=== PATIENT | male | born 1945 | race Caucasian/White ===

== ENCOUNTER 2021-05-02 20:32 | Emergency (ER) | payer MEDICARE ==
[~2021-05-02] VITALS: Ht 172.7 cm; Wt 134.5 kg
[2021-05-02] MEDS ORDERED: BACITRACIN ZINC TOPICAL OINT PACKET. TP ONE (20:54)
[2021-05-02] MEDS ORDERED: NEOMY/BACITR/POLYMYXIN OINT PACKET. TP ONE (21:00)
--- NOTE | 2021-05-02 21:04 | PHYS DOC ---
Past History Additional Past Surgical Histo: Left elbow surgery Smoking: Non-smoker Alcohol Use: Occasionally Drug Use: None General Adult EDM: Chief Complaint: SHOULDER INJURY HPI: HPI: Patient is a 75 year old male who presents with left shoulder pain S/P fall. Reports he was hanging up curtains in his bedroom when he fell approximately 2 feet off of a step-ladder onto the shoulder. Rates pain as 10/10 currently. States the pain radiates into the proximal arm. Also reports numbness in the 3-5 fingers of the left hand. No previous injury to the shoulder. He is not on any blood thinners. Denies any head injury, LOC, or neck pain. Review of Systems: Review of Systems: Constitutional: Denies fever or chills Eyes: Denies redness or eye pain HENT: Denies nasal congestion or sore throat Respiratory: Denies cough or shortness of breath Cardiovascular: Denies chest pain or palpitations GI: Denies abdominal pain, nausea, or vomiting : Denies dysuria or hematuria Musculoskeletal: Reports left shoulder pain. Denies back pain. Integument: Denies rash or skin lesions Neurologic: Reports left 3-5 finger numbness. Denies headache or focal weakness. Complete systems were reviewed and found to be within normal limits, except as documented in this note. Allergies: Allergies: Allergies Coded Allergies Type Severity Reaction Last Updated Verified No Known Drug Allergies 05/02/21 No Physical Exam: PE: Constitutional: Well developed, well nourished, no acute distress, non-toxic appearance HENT: Normocephalic, atraumatic Eyes: Conjunctiva normal, no discharge Neck: Normal range of motion, no tenderness, supple Lungs & Thorax: No respiratory distress, equal chest rise and fall Abdomen: Soft, no tenderness Skin: Warm, dry, no erythema, no rash Back: No tenderness, no CVA tenderness Extremities: Active and passive ROM of the left shoulder limited secondary to pain. Diminished sensation over the left 3-5 fingers. Shoulder and remainder of extremity nontender to palpation. 2+ radial pulses bilaterally. Composite Bond Worker strength intact bilaterally. Neurologic: Alert and oriented X 3, normal motor function, no focal deficits noted Psychologic: Affect normal, judgment normal Current Patient Data: Vital Signs: Vital Signs Date Time Temp Pulse Resp B/P (MAP) Pulse Ox O2 Delivery O2 Flow Rate FiO2 05/02/21 20:35 97.7 71 24 167/100 97 Room Air Radiology/Procedures: Radiology/Procedures: PROCEDURE: SHOULDER 2+V LEFT Three-view left shoulder dated 05/02/2021. No comparison available. Clinical data indication: Pain after fall. FINDINGS: 3 views left shoulder show comminuted mildly displaced fracture through the surgical neck of the left humerus. Possible subtle fracture lines extending to the greater trochanter. Glenohumeral alignment is otherwise anatomic. Mild degenerative change of the glenohumeral joint and AC joint. IMPRESSION: Proximal left humerus fracture as described. Electronically signed by: Vaughn Springer MD (05/02/2021 9:08 PM) [facility] Heart Score: C/O Chest Pain: N/A Course & Med Decision Making: Course & Med Decision Making 75 year old male presents with shoulder pain s/p fall. Imaging significant for humeral head fracture of the left shoulder. Shoulder immobilized and placed in sling. Administered 50mcg of fentanyl for additional pain management. Patient stable for discharge with outpatient follow-up with orthopedics. Discussed findings and plan with patient, who acknowledges understanding and agreement. Lauri Disclaimer: Lauri Disclaimer: This electronic medical record was generated, in whole or in part, using a voice recognition dictation system. Departure Departure: Impression: Primary Impression: Proximal humeral fracture Qualified Codes: S42.292A - Other displaced fracture of upper end of left humerus, initial encounter for closed fracture Additional Impressions: Elbow abrasion Qualified Codes: S50.312A - Abrasion of left elbow, initial encounter Fall Qualified Codes: W19.XXXA - Unspecified fall, initial encounter Disposition: HOME / SELF CARE / HOMELESS Condition: STABLE Referrals: PCP,LISA (PCP) DENISE JUAREZ MD Patient Instructions: Abrasion, [id number], Fall Prevention and Home Safety, [id number], Humerus Fracture, Treated with Immobilization, [id number], Shoulder Immobilizer Additional Instructions: Follow closely with orthopedics. Take over the counter Motrin in addition to prescribed pain medication. ICE area of discomfort 20 min on then leave off next 20 mins. Repeat several times daily as needed for pain. Scripts Tramadol Hcl (TRAMADOL HCL) 50 Mg Tablet 50 MG PO PRN Q6HRS PRN for PAIN, #16 TAB Prov: VAUGHN SOUTH DO 05/02/21 VAUGHN SOUTH DO May 02, 2021 21:04
--- NOTE | 2021-05-02 21:10 | RAD ---
Three-view left shoulder dated 05/02/2021. No comparison available. Clinical data indication: Pain after fall. FINDINGS: 3 views left shoulder show comminuted mildly displaced fracture through the surgical neck of the left humerus. Possible subtle fracture lines extending to the greater trochanter. Glenohumeral alignment is otherwise anatomic. Mild degenerative change of the glenohumeral joint and AC joint. IMPRESSION: Proximal left humerus fracture as described. Electronically signed by: Vaughn Springer MD (05/02/2021 9:08 PM) D[facility]OT[facility]
[2021-05-02 21:19] VITALS: BP 142/8
[2021-05-02] MEDS ORDERED: TRAM50TA PO (21:20)
[2021-05-02] MEDS ORDERED: KETOROLAC 15 MG/ML VIAL. IVP ONE (21:30)
[2021-05-02] MEDS ORDERED: traMADol 50 MG TABLET PO ONE (21:30)
== END 2021-05-02 21:57 | disposition home or self-care (01) ==
LOC: ER 20:32
DX: S42.292A Other displaced fracture of upper end of left humerus, initial encounter for closed fracture (principal); S50.312A Abrasion of left elbow, initial encounter; W11.XXXA Fall on and from ladder, initial encounter; Y93.89 Activity, other specified; Y92.89 Other specified places as the place of occurrence of the external cause; Y99.8 Other external cause status
CPT/HCPCS: 29125; 73030; 96374; 96375; 96376; 99284; J1885; J3010

== ENCOUNTER 2021-06-04 20:17 | Emergency (ER) | payer MEDICARE ==
[~2021-06-04] VITALS: Ht 172.7 cm; Wt 134.5 kg
[~2021-06-04 20:17] MED LIST: TRAM50TA PO
--- NOTE | 2021-06-04 21:45 | PHYS DOC ---
Past History Past Medical History: Hypertension (SAMAN NORTH MD) Additional Past Surgical Histo: Left elbow surgery (SAMAN NORTH MD) Smoking: Non-smoker Alcohol Use: Occasionally Drug Use: None (SAMAN NORTH MD) General Adult EDM: Chief Complaint: HIP PAIN HPI: HPI: Patient is a 75-year-old male coming in for right hip pain started just over 24 hours prior to arrival. Patient states he was sitting watching a game on television when the pain started. Pain should not he initially desat ROM but pain was worse when he got to the bathroom. Is having difficulty ambulating now. Denies any systemic complaints or recent injury. 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 Has not had any complications with joint since. Says he was pain-free prior to the onset. Denies any blood thinner use. Patient had multiple dental extractions 6 days ago, he also had a ORIF of his left proximal humerus 3 weeks ago. Is vaccinated his Covid (SAMAN NORTH MD) Review of Systems: Review of Systems: All other systems within normal limits except for as noted in the HPI (SAMAN NORTH MD) Allergies: Allergies: Allergies Coded Allergies Type Severity Reaction Last Updated Verified No Known Drug Allergies 05/02/21 No (SAMAN NORTH MD) Physical Exam: PE: Constitutional: Well developed, well nourished, no acute distress, non-toxic appearance. [] HENT: Normocephalic, atraumatic, bilateral external ears normal, nose normal. [] Eyes: PERRLA, conjunctiva normal, no discharge. [] Neck: No rigidity, supple, no stridor. [] Cardiovascular: Regular rate and rhythm, brisk cap refill [] Lungs & Thorax: Non labored symmetric respirations, no tachypnea or respiratory distress [] Abdomen: Soft, nondistended. Skin: Warm, dry, no erythema, no rash. [] Back: Unremarkable Extremities: No deformities, range of motion grossly intact, no lower extremity edema. Right hip tender to palpation, pain with passive leg roll. Exam limited by patient discomfort. [] Neurologic: Alert and oriented X 3, no focal deficits noted. [] Psychologic: Affect normal, judgement normal, mood normal. [] (SAMAN NORTH MD) PE: Constitutional: Well developed, well nourished, uncomfortable, non-toxic appearance HENT: Normocephalic, atraumatic Eyes: Conjunctiva normal, no discharge Neck: Normal range of motion, supple Lungs & Thorax: No respiratory distress, equal chest rise and fall Abdomen: Soft, no tenderness Skin: Warm, dry, no erythema, no rash Extremities: Right groin and lateral hip tenderness on palpation, ROM limited to right hip due to pain, no edema, right DP and PT +2 Neurologic: Alert and oriented X 3, no focal deficits noted Psychologic: Affect normal, judgment normal (WILLIAM SOUTH DO) EKG: EKG: [] (SAMAN NORTH MD) Radiology/Procedures: Radiology/Procedures: [place] [address] IMAGING REPORT Signed PATIENT: JACE CHAO ACCOUNT: [id number] : 1945 LOCATION: ER AGE: 75 SEX: M EXAM STATUS: REG ER ORD. PHYSICIAN: SAMAN NORTH MD REASON: non traumatic hip pain, concern for septic arthritis PROCEDURE: HIP RIGHT 2V WITH PELVIS Exam: Pelvis with right hip 2 views INDICATION: Nontraumatic hip pain TECHNIQUE: Frontal view of the pelvis with frontal and frog-leg lateral views of the right hip Comparisons: None FINDINGS: Bilateral hip arthroplasties are noted. No acute or healed fractures. Soft tissues are unremarkable. Bone mineralization is normal. 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 Electronically signed by: Mitzi Ortiz MD (06/04/2021 10:52 PM) [facility] DICTATED AND SIGNED BY: MITZI ORTIZ MD DATE: 06/04/21 5340 CC: SAMAN NORTH MD; JAX BOCANEGRA DO ~MTH0 0 [] (SAMAN NORTH MD) Heart Score: C/O Chest Pain: No Risk Factors: Risk Factors: DM, Current or recent (<one month) smoker, HTN, HLP, family history of CAD, obesity. Risk Scores: Score 0 - 3: 2.5% MACE over next 6 weeks - Discharge Home Score 4 - 6: 20.3% MACE over next 6 weeks - Admit for Clinical Observation Score 7 - 10: 72.7% MACE over next 6 weeks - Early Invasive Strategies (SAMAN NORTH MD) Course & Med Decision Making: Course & Med Decision Making Pertinent Labs and Imaging studies reviewed. (See chart for details) Patient with white count of 18,000 and CRP of 130, no other pain or source of infection. 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 Discussed the case with Dr. Biggs who will see the patient at [facility] and would like him to go to IR for fluoroscopic arthrocentesis. Since patient is not septic at this time he would like to hold off antibiotics and a contaminated sample. With the plan that we will start antibiotics if patient's status changes. Patient and agree to plan and will wait for a bed at [facility] in the morning to go straight to IR. Patient given IV fluids and placed on n.p.o. status. Consulted Dr. Chappell, hospitalist, who will accept patient at [facility]. Patient stable emergency department overnight, pending transport shift change. [] (SAMAN NORTH MD) Course & Med Decision Making [id number]-signout received from Dr. North for patient with right hip pain status post right hip arthroplasty. There was concern for possible septic arthritis. Patient previously admitted to [facility] but awaiting bed assignment. Patient to be seen by interventional radiology. Reportedly antibiotics are to be held until patient has been seen by interventional radiology for sampling of fluid. Patient seen and evaluated by myself. Pain continued to be addressed. Plan to continue with transfer to [facility] for admission under Dr. Chappell (hospitalist). 1200- Patient with bed assignment. Pain continued to be addressed. RN report given. EMS called for transport. Discussed current findings and plan with patient, who acknowledges understanding and agreement. (WILLIAM SOUTH DO) Lauri Disclaimer: Lauri Disclaimer: This electronic medical record was generated, in whole or in part, using a voice recognition dictation system. (SAMAN NORTH MD) Departure Departure: Impression: Primary Impression: Septic arthritis Qualified Codes: M00.9 - Pyogenic arthritis, unspecified Disposition: 02 SHORT TERM HOSPITAL ([facility]- Dr. Chappell (hospitalist)) Condition: STABLE Referrals: LABRUZZO,JAX K DO (PCP) SAMAN NORTH MD Jun 04, 2021 21:44 WILLIAM SOUTH DO Jun 05, 2021 11:00
--- NOTE | 2021-06-04 22:55 | RAD ---
Exam: Pelvis with right hip 2 views INDICATION: Nontraumatic hip pain TECHNIQUE: Frontal view of the pelvis with frontal and frog-leg lateral views of the right hip Comparisons: None FINDINGS: Bilateral hip arthroplasties are noted. No acute or healed fractures. Soft tissues are unremarkable. Bone mineralization is normal. 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 Electronically signed by: Mitzi More MD (06/04/2021 10:52 PM) BR[facility]
[2021-06-04 22:57] LABS: BASO # 0.1 x10^3/uL (0.0-0.2); BASO % 0 % (0-3); EOS % 0 % (0-3); HEMATOCRIT 34.3 % (39.0-53.0); HEMOGLOBIN 11.7 g/dL (13.0-17.5); LYMPH # 1.3 x10^3/uL (1.0-4.8); LYMPH % 7 % (24-48); MEAN CORPUSCULAR HEMOGLOBIN 35 pg (25-35); MEAN CORPUSCULAR HGB CONC 34 g/dL (31-37); MEAN CORPUSCULAR VOLUME 102 fL (79-100); MONO % 11 % (0-9); NEUT # 14.6 x10^3uL (1.8-7.7); NEUT % 81 % (31-73); PLATELET COUNT 198 x10^3/uL (140-400); RED BLOOD COUNT 3.37 x10^6/uL (4.30-5.70); RED CELL DISTRIBUTION WIDTH 12.9 % (11.5-14.5); WHITE BLOOD COUNT 18.1 x10^3/uL (4.0-11.0)
[2021-06-04 23:01] LABS: CALCIUM 9.2 mg/dL (8.5-10.1); CREATININE 0.9 mg/dL (0.7-1.3); GFR 82.3; POTASSIUM 4.1 mmol/L (3.5-5.1)
[2021-06-04 23:07] LABS: ALBUMIN 3.1 g/dL (3.4-5.0); ALBUMIN/GLOBULIN RATIO 0.8 (1.0-1.7); C REACTIVE PROTEIN 132.2 mg/L (0-3.3); TOTAL BILIRUBIN 0.9 mg/dL (0.2-1.0); TOTAL PROTEIN 7.1 g/dL (6.4-8.2)
[2021-06-04 23:23] LABS: % BANDS 4 % (0-9); % LYMPHS 11 % (24-48); % MONOS 5 % (0-10); % SEGS 80 % (35-66); PLT ESTIMATE ADEQUATE (ADEQUATE)
[2021-06-05] MEDS ORDERED: HYDROmorphone PF 1 MG/ML DISP.SYRIN IVP ONE
[2021-06-05] MEDS ORDERED: IV RINGERS SOLUTION,LACTATED 1,000 ML IV ONE
[2021-06-05] MEDS ORDERED: HYDROmorphone PF 1 MG/ML DISP.SYRIN IVP PRN (01:00)
[2021-06-05] MEDS ORDERED: KETOROLAC 15 MG/ML VIAL. IVP ONE (01:00)
[2021-06-05 11:45] VITALS: BP 128/73
== END 2021-06-05 12:30 | disposition short-term general hospital (02) ==
LOC: ER 20:17
DX: M00.9 Pyogenic arthritis, unspecified (principal); I10 Essential (primary) hypertension; Z20.822 Contact with and (suspected) exposure to COVID-19
CPT/HCPCS: 36415; 73502; 80053; 85007; 85025; 86140; 87040; 87205; 87426; 96361; 96374; 96375; 96376; 99285; C9803; J1170; J1885; J3010; J7120; U0003